=== PATIENT | female | born 1970 | race African-American/Black ===

== ENCOUNTER 2017-09-11 13:58 | Emergency (ER) | payer SELFPAY ==
[~2017-09-11] VITALS: Ht 172.7 cm; Wt 54.4 kg
[2017-09-11 14:00] VITALS: BP_SYST 96
--- NOTE | 2017-09-11 14:00 | NUR ---
Patient triaged and placed in waiting room. VSS and patient appears in no acute distress at this time. Accompanied by BOYFRIEND, awaiting available bed, and MD notified of need for MSE.
--- NOTE | 2017-09-11 14:22 | NUR ---
SEEN BY BORIS SALMERON FOR EVALUATION IN TRIAGE ROOM
[2017-09-11] MEDS ORDERED: NACL 0.9% 1,000 ML IV ONE (14:45)
[2017-09-11 15:33] LABS: BILIRUBIN,URINE NEGATIVE (NEGATIVE); BLOOD, URINE NEGATIVE (NEGATIVE); CLARITY/URINE CLEAR (CLEAR); COLOR,URINE AMBER (YELLOW); GLUCOSE,URINE NEGATIVE (NEGATIVE); KETONES,URINE NEGATIVE (NEGATIVE); LEUKOCYTE ESTERASE ,URINE NEGATIVE (NEGATIVE); NITRITE, URINE NEGATIVE (NEGATIVE); PH,URINE 6.5 (5.0-8.0); PROTEIN URINE NEGATIVE (NEGATIVE); UROBILINOGEN,URINE >=8 (0.2-1.0)
--- NOTE | 2017-09-11 16:00 | NUR ---
Patient to ER bed 3 to gown for evaluation. Side rails up. Assumed care of patient.
--- NOTE | 2017-09-11 16:15 | NUR ---
Attempted to establish IV access, unable to locate potiential site. Patient is requesting IV access in legs. Discussed with Trang HOLGUIN.
--- NOTE | 2017-09-11 16:35 | NUR ---
Patient given written and verbal discharge instructions and verbalizes understanding. ER MD discussed with patient the results and treatment provided. Patient in stable condition. ID arm band removed. Rx of Wendell given. Patient educated on pain management and to follow up with PMD. Pain Scale 9/10, pt agrees to discharge with Wendell for home management. Opportunity for questions provided and answered.
[2017-09-11 16:40] VITALS: BP_SYST 97
== END 2017-09-11 16:40 | disposition home or self-care (01) ==
LOC: SED 13:58
DX: M54.5 Low back pain (principal); Z88.0 Allergy status to penicillin; Z88.8 Allergy status to other drugs, medicaments and biological substances; Z86.2 Personal history of diseases of the blood and blood-forming organs and certain disorders involving the immune mechanism
CPT/HCPCS: 81003; 96372; 99283; J7030